=== PATIENT | female | born 1950 | race Caucasian/White ===

== ENCOUNTER 2016-03-19 09:52 | Day surgery (SDC) | payer MEDICARE ==
[~2016-03-19 09:52] MED LIST: LACTATED RINGERS 1,000 ML IV SCH; LIDOCAINE 1% 20 ML VIAL (10MG/ML) FOR IV START INTRADERMA PRN
[2016-03-19 10:05] VITALS: RESP 16
[2016-03-19] MEDS ORDERED: PROPOFOL 10 MG/ML 20 ML VIAL IV ONE (10:20)
[2016-03-19 10:21] VITALS: TEMP 97.8
--- NOTE | 2016-03-19 10:28 | P.GSHP ---
History of Present Illness H&P Date: 03/19/16 Chief Complaint: Screening Patient her today for colonoscopy. Last colonoscopy was 10 years ago. No bowel related complaints. No family history of colon cancer. Past Medical History Past Medical History: Asthma, Hyperlipidemia Additional Past Medical History / Comment(s): Fine Tremors History of Any Multi-Drug Resistant Organisms: None Reported Past Surgical History: Bladder Surgery, Hysterectomy Additional Past Surgical History / Comment(s): bladder susp Past Anesthesia/Blood Transfusion Reactions: No Reported Reaction Past Psychological History: No Psychological Hx Reported Smoking Status: Never smoker Past Alcohol Use History: Occasional Past Drug Use History: None Reported - Past Family History Sister(s) Family Medical History: Cancer Additional Family Medical History / Comment(s): ovarian Mother Additional Family Medical History / Comment(s): healthy at age 89 Father Family Medical History: No Reported History Medications and Allergies Home Medications Medication Instructions Recorded Confirmed Type Albuterol Nebulized [Ventolin 2.5 mg INHALATION TID PRN 12/21/14 03/19/16 History Nebulized] Propranolol HCl 20 mg PO QAM 12/21/14 03/19/16 History Simvastatin [Zocor] 20 mg PO HS 12/21/14 03/19/16 History Calcium Carbonate/Vitamin D3 1 each PO DAILY 03/17/16 03/19/16 History [Calcium 600-Vit D3 200 Tablet] Cetirizine HCl [Zyrtec] 10 mg PO DAILY PRN 03/17/16 03/19/16 History Cholecalciferol [Vitamin D3] 1,000 unit PO DAILY 03/17/16 03/19/16 History Fluticasone/Salmeterol [Advair 1 inhalation PO QAM 03/17/16 03/19/16 History 500-50 Diskus] Multivitamins, Thera [Multivitamin] 1 tab PO DAILY 03/17/16 03/19/16 History Allergies Allergy/AdvReac Type Severity Reaction Status Date / Time shrimp Allergy Anaphylaxis Verified 03/17/16 08:32 Surgical - Exam Vital Signs Temp Pulse Resp BP Pulse Ox 97.4 F L 90 16 126/81 96 03/19/16 10:00 03/19/16 10:00 03/19/16 10:00 03/19/16 10:00 03/19/16 10:00 Physical exam: General: Well-developed, well-nourished HEENT: Normocephalic, sclerae nonicteric Abdomen: Nontender, nondistended Extremities: No edema Neuro: Alert and oriented Assessment and Plan (1) Colon cancer screening Narrative/Plan: Proceed with colonoscopy at this time. Status: Acute
--- NOTE | 2016-03-19 10:42 | P.PCN ---
Date of Procedure: 03/19/16 Procedure(s) Performed: PREOPERATIVE DIAGNOSIS: Screening POSTOPERATIVE DIAGNOSIS: Transverse colon polyp, diverticulosis PROCEDURE: Colonoscopy with snare polypectomy ANESTHESIA: MAC SURGEON: David Gardiner M.D. SPECIMENS: Transverse colon polyp ENDOSCOPIC PROCEDURE: The patient was placed on the endoscopy table in the left decubitus position. The Olympus colonoscope was inserted into the anus and passed under direct visualization to the base of the cecum. The appendiceal orifice was visualized. From that point the scope was slowly withdrawn inspecting all surfaces carefully. There were no neoplastic inflammatory or polypoid lesions throughout the cecum and ascending colon. In the mid transverse colon a small polyp was identified and removed using the snare with cautery technique. The remainder of the transverse descending sigmoid and rectum appeared normal. There was mild left-sided diverticulosis present. Digital rectal examination was normal. The patient was taken to the recovery room in stable condition per anesthesia guidelines. RECOMMENDATIONS: Await biopsy results. Anticipate follow-up colonoscopy 5 years.
[2016-03-19 11:22] VITALS: BP 143/72; PULSE 91
== END 2016-03-19 11:27 | disposition home or self-care (01) ==
LOC: ORWHC2ENDO 09:52
PROVIDERS: ATTEND Surgery
DX: Z12.11 Encounter for screening for malignant neoplasm of colon (principal); D12.3 Benign neoplasm of transverse colon; K57.30 Diverticulosis of large intestine without perforation or abscess without bleeding; J45.909 Unspecified asthma, uncomplicated; E78.5 Hyperlipidemia, unspecified; Z79.84 Long term (current) use of oral hypoglycemic drugs; Z79.51 Long term (current) use of inhaled steroids; Z79.899 Other long term (current) drug therapy; Z91.013 Allergy to seafood
CPT/HCPCS: 88305; 45385; J2704; 99153

== ENCOUNTER → 2016-07-16 | Outpatient (CLI) | payer MEDICARE ==
--- NOTE | 2016-07-16 22:17 | US ---
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 Pt states swelling in neck, no known thyroid problems GLAND SIZE: Right Lobe: 4.1 x 1.1 x 1.3 cm Overall Parenchyma: homogenous Left Lobe: 3.8 x 1.0 x 1.6 cm Overall Parenchyma: homogeneous Isthmus Thickness: 0.2 cm NODULES RIGHT: # of nodules measured on right: 1 Small sub-centimeter cyst at mid level LEFT: # of nodules measured on left: 0 ISTHMUS: # of nodules measured in the isthmus: 0 Bilateral neck scanned, no evidence of lymphadenopathy. Thyroid gland is normal in size and homogeneous In echotexture. No worrisome greater than 1 cm nodules are evident. IMPRESSION: Normal-sized thyroid without suspicious nodules.
== END | disposition home or self-care (01) ==
LOC: RADUSWWP 16:07
PROVIDERS: ATTEND Family Medicine
DX: E04.1 Nontoxic single thyroid nodule (principal)
CPT/HCPCS: 76536

== ENCOUNTER → 2017-02-12 | Outpatient (CLI) | payer MEDICARE ==
--- NOTE | 2017-02-12 16:17 | BD ---
EXAMINATION TYPE: MG DEXA axial skeleton. DATE OF EXAM: 02/12/2017 CLINICAL HISTORY: Height: 63.5 Weight: 180 FRAX RISK QUESTIONS: Alcohol (3 or more units per day): no Family History (Parent hip fracture): no Glucocorticoids (More than 3mos): yes, inhaler, breathing treatments (Ex: prednisone, prednisolone, methylprednisolone, dexamethasone, and hydrocortisone). History of Fracture in Adulthood: wrist/forearm, ribs Secondary Osteoporosis: 1. Type 1 Diabetes: no 2. Hyperthyroidism: no 3. Menopause before 45: no 4. Malnutrition: no 5. Chronic liver disease: no Rheumatoid Arthritis: no Current Tobacco Use: no RISK FACTORS HISTORY OF: History of Wrist Fracture: yes When: about 8 years ago Surgery to Spine/Hip(right/left)/Wrist (right/left): no Family History of Osteoporosis: no Active: yes Diet low in dairy products/other sources of calcium: no Postmenopausal woman: yes Take estrogen and/or progesterone medications: not now How long: started age 53 then took for about 3 years Lost more than 2 inches in height since high school: no Frequent falls: no Poor Health: no Hyperparathyroidism: no Adrenal Insufficiency: no MEDICATIONS: Prednisone or other steroids: yes, for asthma How Long: about 4 years Thyroid Medications: no Osteoporosis Medications: no Additional Medications: cholesterol meds EXAM MEASUREMENTS: Bone mineral densitometry was performed using the [employer] System. Bone mineral density as measured about the Lumbar spine is: ----- L1-L4(G/cm2): 1.310 T Score Values are as follows: ----- L2: 0.7 ----- L3: 1.1 ----- L4: 2.3 ----- L1-L4: 1.1 Bone mineral density has: Decreased -0.5% since study of: 10/12/2014 Bone mineral density about the R hip (g/cm2): 1.033 Bone mineral density about the L hip (g/cm2): 1.069 T Score values are as follows: -----R Neck: 0.0 -----L Neck: 0.2 -----R Total: 1.0 -----L Total: 1.3 Bone mineral density has: Decreased -1.8% since study of: 10/12/2014 IMPRESSION: Normal (Values between +1 and -1 indicate normal bone mass). Consider repeating this study in 5 year s or sooner if there is some new clinical indication. NOTE: T-SCORE=SD OF THE YOUNG ADULT MEAN.
--- NOTE | 2017-02-13 11:19 | MM ---
Reason for exam: screening (asymptomatic). Last mammogram was performed 1 year and 3 months ago. History: Patient is postmenopausal. Taking estrogen for 3 years beginning at age 53. Physical Findings: A clinical breast exam by your physician is recommended on an annual basis and results should be correlated with mammographic findings. MG Screening Mammo w CAD Bilateral CC and MLO view(s) were taken. Prior study comparison: November 14, 2015, bilateral MG screening mammo w CAD. September 14, 2014, bilateral MG screening mammo w CAD. The breast tissue is heterogeneously dense. This may lower the sensitivity of mammography. There is chronic nodularity in the left breast, stable since 2011. No significant changes when compared with prior studies. ASSESSMENT: Benign, BI-RAD 2 RECOMMENDATION: Routine screening mammogram of both breasts in 1 year.
== END | disposition home or self-care (01) ==
LOC: RADBDWWP 12:16
PROVIDERS: ATTEND Family Medicine
DX: Z12.31 Encounter for screening mammogram for malignant neoplasm of breast (principal); Z78.0 Asymptomatic menopausal state
CPT/HCPCS: 77067; 77080

== ENCOUNTER → 2017-06-17 | Outpatient (CLI) | payer MEDICARE ==
[2017-06-17 08:46] LABS: ALT 44 U/L (9-52); AST 32 U/L (14-36); Cholesterol 181 mg/dL (<200); HDL Cholesterol 51 mg/dL (40-60); LDL Cholesterol,Calculated 103 mg/dL (0-99); Triglycerides 137 mg/dL (<150)
== END | disposition home or self-care (01) ==
LOC: LABWHC1 07:51
PROVIDERS: ATTEND Family Medicine
DX: E78.00 Pure hypercholesterolemia, unspecified (principal)
CPT/HCPCS: 36415; 80061; 84450; 84460

== ENCOUNTER → 2018-02-25 | Outpatient (CLI) | payer MEDICARE ==
--- NOTE | 2018-02-27 13:31 | MM ---
Reason for exam: screening (asymptomatic). Last mammogram was performed 1 year ago. History: Patient is postmenopausal. Taking estrogen for 3 years beginning at age 53. MG Screening Mammo w CAD Bilateral CC and MLO view(s) were taken. Prior study comparison: February 12, 2017, bilateral MG screening mammo w CAD. November 14, 2015, bilateral MG screening mammo w CAD. The breast tissue is heterogeneously dense. This may lower the sensitivity of mammography. Chronic nodularity in the right breast. No significant changes when compared with prior studies. ASSESSMENT: Benign, BI-RAD 2 RECOMMENDATION: Routine screening mammogram of both breasts in 1 year.
== END | disposition home or self-care (01) ==
LOC: RADMAMWWP 09:27
PROVIDERS: ATTEND Family Medicine
DX: Z12.31 Encounter for screening mammogram for malignant neoplasm of breast (principal)
CPT/HCPCS: 77067

== ENCOUNTER → 2018-07-09 | Outpatient (CLI) | payer MEDICARE ==
[2018-07-09 11:25] LABS: Anion Gap 4 mmol/L; Blood Urea Nitrogen 20 mg/dL (7-17); Calcium 9.3 mg/dL (8.4-10.2); Carbon Dioxide 32 mmol/L (22-30); Chloride 105 mmol/L (98-107); Glucose 99 mg/dL (74-99); Sodium 141 mmol/L (137-145)
[2018-07-09 11:29] LABS: Potassium 5.5 mmol/L (3.5-5.1)
--- NOTE | 2018-07-09 12:44 | CT ---
EXAMINATION TYPE: CT abdomen pelvis wo/w con DATE OF EXAM: 07/09/2018 COMPARISON: None HISTORY: Pre OP bladder suspension CT DLP: 3165 mGycm Automated exposure control for dose reduction was used. TECHNIQUE: Helical acquisition of images was performed from the lung bases through the pelvis. CONTRAST: Performed without Oral Contrast and without and with IV Contrast, patient injected with 100 mL of Iso yousuf 300. FINDINGS: There is some linear density at the lung bases consistent with subsegmental atelectasis. Heart size i s normal. There is no pericardial effusion. There is no pleural effusion. Liver spleen stomach pancreas gallbladder appear normal. Bile ducts are not dilated. There is no adrenal mass. Kidneys have normal size and contour. There are renal parapelvic cysts. The re is no hydronephrosis. Ureters are not dilated. There is no retroperitoneal adenopathy. Appendix ap pears normal. There is descent of the floor of the urinary bladder consistent with cystocele. There is 6 mm calcifi c density at the floor of the pelvis on the left side that could be a sebaceous cyst or phlebolith. H ysterectomy is noted. There is no inguinal hernia. There is no free fluid in the pelvis. There are mu ltiple diverticula of the sigmoid colon. I see no sign of diverticulitis. There is no evidence of a b owel obstruction. There is no mesenteric edema. There is no free air or ascites. There are spondylotic changes in the lumbar spine with moderate narrowing at L4-5 disc. There is no c ompression fracture. IMPRESSION: MILD SUBSEGMENTAL ATELECTASIS AT THE LUNG BASES. SMALL CYSTOCELE. COLONIC DIVERTICULOSIS WITHOUT DIVERTICULITIS.
== END | disposition home or self-care (01) ==
LOC: RADCTMAIN 10:28
PROVIDERS: ATTEND Urology
DX: K57.30 Diverticulosis of large intestine without perforation or abscess without bleeding (principal); N81.10 Cystocele, unspecified; R31.29 Other microscopic hematuria
CPT/HCPCS: 80048; 74178; 36415; Q9967

== ENCOUNTER → 2018-08-02 | Outpatient (CLI) | payer MEDICARE ==
[2018-08-02 16:51] LABS: LDL Cholesterol,Calculated 79.4 mg/dL (0.0-131.0); VLDL Calculation 22.6 mg/dL (5.00-40.00)
== END | disposition home or self-care (01) ==
LOC: LABWHC1 07:56
PROVIDERS: ATTEND Family Medicine
DX: E78.00 Pure hypercholesterolemia, unspecified (principal)
CPT/HCPCS: 36415; 80061; 84450; 84460

== ENCOUNTER → 2018-11-09 | Outpatient (CLI) | payer MEDICARE ==
[2018-11-09 08:36] LABS: HCT 44.1 % (34.0-46.0); HGB 14.8 gm/dL (11.4-16.0); MCH 29.7 pg (25.0-35.0); MCHC 33.5 g/dL (31.0-37.0); MCV 88.7 fL (80.0-100.0); Mean Platelet Volume 7.4; Platelet Count 197 k/uL (150-450); RBC 4.97 m/uL (3.80-5.40); RDW 12.9 % (11.5-15.5); WBC 5.9 k/uL (3.8-10.6)
[2018-11-09 09:05] LABS: Creatine Kinase MB 1.4 ng/mL (0.0-2.4); Troponin I <0.012 ng/mL (0.000-0.034)
[2018-11-09 18:04] LABS: African American GFR (CKD) 102.5 (60.0-200.0); Anion Gap 10.9 mmol/L (4.00-12.00); BUN/Creat Ratio 25.71 Ratio (12.00-20.00); Calcium 9.1 mg/dL (8.7-10.3); Carbon Dioxide 31.1 mmol/L (21.6-31.8); Potassium 4.2 mmol/L (3.5-5.5)
== END | disposition home or self-care (01) ==
LOC: LABWHC1 07:58
PROVIDERS: ATTEND Urology
DX: N81.11 Cystocele, midline (principal)
CPT/HCPCS: 36415; 80048; 82553; 84484; 85027; 87086

== ENCOUNTER → 2019-12-16 | Outpatient (CLI) | payer MEDICARE | END | disposition home or self-care (01) | LOC: LABWHC1 10:36 | PROVIDERS: ATTEND Family Medicine | DX: R05 Cough (principal) | CPT/HCPCS: U0003; C9803 ==

== ENCOUNTER → 2020-12-13 | Outpatient (CLI) | payer MEDICARE ==
--- NOTE | 2020-12-17 09:49 | MM ---
Reason for exam: screening (asymptomatic). Last mammogram was performed 2 years and 10 months ago. History: Patient is postmenopausal. Took hormonal contraceptives for 4 years. Taking estrogen for 3 years beginning at age 53. Physical Findings: A clinical breast exam by your physician is recommended on an annual basis and results should be correlated with mammographic findings. MG 3D Screening Mammo W/Cad Bilateral CC and MLO view(s) were taken. Prior study comparison: February 25, 2018, bilateral MG screening mammo w CAD. February 12, 2017, bilateral MG screening mammo w CAD. No significant changes when compared with prior studies. ASSESSMENT: Benign, BI-RAD 2 RECOMMENDATION: Routine screening mammogram of both breasts in 1 year.
== END | disposition home or self-care (01) ==
LOC: RADMAMWWP 11:28
PROVIDERS: ATTEND Family Medicine
DX: Z12.31 Encounter for screening mammogram for malignant neoplasm of breast (principal); Z78.0 Asymptomatic menopausal state
CPT/HCPCS: 77063; 77067

== ENCOUNTER → 2021-12-24 | Outpatient (CLI) | payer MEDICARE ==
--- NOTE | 2021-12-24 10:55 | MM ---
Reason for Exam: Screening (asymptomatic). Last screening mammogram was performed 12 month(s) ago. Patient History: Menarche at age 11. First Full-Term at age 24. Right ovary removed at age 47. Hysterectomy at age 47. Postmenopausal. Currently using Estrogen, beginning at age 53 for 3 years. Patient used Hormonal Contraceptives for 4 years. Risk Values: Ratna 5 year model risk: 2.0%. NCI Lifetime model risk: 5.1%. Prior Study Comparison: 07/31/1989 Screening Mammogram, Unknown. 04/15/2012 Bilateral Screening Mammogram, [facility]. 06/10/2013 Bilateral Screening Mammogram, [facility]. 09/14/2014 Bilateral Screening Mammogram, [facility]. 11/14/2015 Bilateral Screening Mammogram, [facility]. 02/12/2017 Bilateral Screening Mammogram, [facility]. 02/25/2018 Bilateral Screening Mammogram, [facility]. 12/13/2020 Bilateral Screening Mammogram, [facility]. Tissue Density: There are scattered fibroglandular densities. Findings: Analyzed By CAD. A few tiny benign-appearing round calcifications bilaterally are redemonstrated. Stable 7 mm oval circumscribed mass in the right breast unchanged from several prior mammograms seen best on CC view. There is no suspicious new group of microcalcifications or new suspicious mass in either breast. Overall Assessment: Benign, BI-RAD 2 Management: Screening Mammogram of both breasts in 1 year. A clinical breast exam by your physician is recommended on an annual basis and results should be correlated with mammographic findings. Electronically signed and approved by: Sung Robbins M.D.
== END | disposition home or self-care (01) ==
LOC: RADMAMWWP 08:14
PROVIDERS: ATTEND Family Medicine
DX: Z12.31 Encounter for screening mammogram for malignant neoplasm of breast (principal); Z78.0 Asymptomatic menopausal state
CPT/HCPCS: 77063; 77067

== ENCOUNTER → 2021-12-24 | Outpatient (CLI) | payer MEDICARE ==
--- NOTE | 2021-12-24 09:43 | US ---
EXAMINATION TYPE: US abdomen complete DATE OF EXAM: 12/24/2021 COMPARISON: CT abdomen pelvis 07/09/2018. CLINICAL HISTORY: R10.84 ABD PAIN. TECHNIQUE: Multiple sonographic images of the abdomen are obtained. FINDINGS: EXAM MEASUREMENTS: Liver Length: 13.4 cm Gallbladder Wall: 0.1 cm CBD: 0.4 cm Spleen: 10.0 cm Right Kidney: 10.1 x 4.2 x 4.1 cm Left Kidney: 11.3 x 4.5 x 4.7 cm SPECIALTY COOK NOTES: Technically difficult study due to overlying bowel gas. Pancreas: wnl as seen partially obscured by overlying bowel gas Liver: limited visualization, situated high in ribs, unable to well evaluate, wnl as seen. No solid o r cystic masses identified. No intrahepatic biliary duct dilatation. Gallbladder: cholelithiasis, possible sludge. No wall thickening or pericholecystic fluid. Evidence for sonographic Thompson's sign: no CBD: wnl Spleen: wnl Right Kidney: parapelvic cysts largest measuring 0.5 x 0.4 x 0.4cm . No hydronephrosis or shadowing calculi. No contour deforming solid mass. Left Kidney: innumerable parapelvic cysts, largest a cystic cluster measuring 1.9 x 1.5 x 1.9cm. No hydronephrosis or shadowing calculi. No contour deforming solid mass. Upper IVC: wnl Abd Aorta: wnl as seen partially obscured by overlying bowel gas IMPRESSION: * No acute process. * Cholelithiasis without evidence for acute cholecystitis. * Bilateral renal sinus cysts.
== END | disposition home or self-care (01) ==
LOC: RADUSWWP 08:11
PROVIDERS: ATTEND Family Medicine
DX: K80.20 Calculus of gallbladder without cholecystitis without obstruction (principal); N28.1 Cyst of kidney, acquired
CPT/HCPCS: 76700

== ENCOUNTER → 2023-01-13 | Outpatient (CLI) | payer MEDICARE ==
--- NOTE | 2023-01-14 16:19 | MM ---
Reason for Exam: Screening (asymptomatic). Last mammogram was performed 1 year(s) and 1 month(s) ago. Patient History: Menarche at age 11. First Full-Term at age 24. Right ovary removed at age 47. Hysterectomy at age 47. Postmenopausal. Currently using Estrogen, beginning at age 53 for 3 years. Patient used Hormonal Contraceptives for 4 years. Risk Values: Ratna 5 year model risk: 2.0%. NCI Lifetime model risk: 4.8%. Prior Study Comparison: 02/25/2018 Bilateral Screening Mammogram, [facility]. 12/13/2020 Bilateral Screening Mammogram, [facility]. 12/24/2021 Bilateral MG 3D screening mammo w/cad, [facility]. Tissue Density: The breast tissue is heterogeneously dense. This may lower the sensitivity of mammography. Findings: Analyzed By CAD. Pattern appears symmetrical and stable No suspicious groups of microcalcifications, spiculated or lobular masses, architectural distortion or other secondary signs of malignancy are mammographically apparent. Overall Assessment: Benign, BI-RAD 2 Management: Screening Mammogram of both breasts in 1 year. A negative mammogram report should not preclude additional follow up of suspicious palpable abnormalities. Patient should continue monthly self breast exam. A clinical breast exam by your physician is recommended on an annual basis and results should be correlated with mammographic findings. Electronically signed and approved by: Miguel A Greco D.O. Radiologis
== END | disposition home or self-care (01) ==
LOC: RADMAMWWP 09:45
PROVIDERS: ATTEND Family Medicine
DX: Z12.31 Encounter for screening mammogram for malignant neoplasm of breast (principal); Z78.0 Asymptomatic menopausal state
CPT/HCPCS: 77063; 77067

== ENCOUNTER → 2023-05-18 | Day surgery (SDC) | payer MEDICARE ==
[2023-05-13 15:50] VITALS: BMI 30.5
[~2023-05-18] MED LIST changes: +ACETAMINOPHEN TAB 325 MG TAB PO SCH; +GLYCOPYRROLATE 0.2 MG/ML 2 ML VIAL ONE; +IBUPROFEN 600 MG TAB PO SCH; -LACTATED RINGERS 1,000 ML IV SCH; -LIDOCAINE 1% 20 ML VIAL (10MG/ML) FOR IV START INTRADERMA PRN; +LIDOCAINE 1% INJ 10MG/ML (20 ML MDV) ONE; +MIDAZOLAM 2 MG/2 ML VIAL IV PRN; +MIDAZOLAM 2 MG/2 ML VIAL ONE; +NEOSTIGMINE 1 MG/ML 10 ML VIAL ONE; +ONDANSETRON 4 MG/2 ML VIAL IVP PRN; +PHENYLEPHRINE 10 MG/ML VIAL ONE; +PROPOFOL 10 MG/ML 20 ML VIAL IV ONE; +ROCURONIUM 10 MG/ML (5 ML VIAL) IV ONE; +SUCCINYLCHOLINE CHLORIDE 200 MG/10 ML VIAL IV ONE; +fentaNYL (PF) 50 MCG/ML 2 ML AMP ONE; +traMADol 50 MG TAB PO PRN
[2023-05-18] MEDS: LACTATED RINGERS 1,000 ML IV SCH (06:44)
[2023-05-18] MEDS: ACETAMINOPHEN TAB 500 MG TAB PO PRN (06:59)
[2023-05-18] MEDS: DEXAMETHASONE SOD PHOSPHATE 4 MG/ML 1 ML VIAL IV ONE (06:59)
[2023-05-18] MEDS: HEPARIN SODIUM,PORCINE 5,000 UNIT/ML 1 ML VIAL SQ PRN (07:00)
[2023-05-18] MEDS: ONDANSETRON 4 MG/2 ML VIAL IVP ONE ×2 (07:00→11:26)
--- NOTE | 2023-05-18 07:10 | P.GSHP ---
History of Present Illness H&P Date: 05/18/23 Chief Complaint: Chronic cholecystitis 72-year-old female seen in the office in February. Patient having complaints of postprandial pain and bloating. History of known gallstones. Symptoms have increased since she was last seen. She contacted our office to schedule surger y. Past Medical History Past Medical History: Asthma, Hyperlipidemia, Hypertension Additional Past Medical History / Comment(s): Fine Tremors, GALLSTONES History of Any Multi-Drug Resistant Organisms: None Reported Past Surgical History: Bladder Surgery, Hysterectomy Additional Past Surgical History / Comment(s): bladder susp. COLONOSCOPY/EGD Past Anesthesia/Blood Transfusion Reactions: No Reported Reaction Smoking Status: Never smoker - Past Family History Sister(s) Family Medical History: Cancer Additional Family Medical History / Comment(s): ovarian Mother Additional Family Medical History / Comment(s): healthy at age 89 Father Family Medical History: No Reported History Medications and Allergies Home Medications Medication Instructions Recorded Confirmed Type Albuterol Nebulized [Ventolin 2.5 mg INHALATION TID PRN 12/21/14 05/18/23 History Nebulized] Simvastatin [Zocor] 20 mg PO DAILY 12/21/14 05/18/23 History Calcium Carbonate/Vitamin D3 1 each PO DAILY 03/17/16 05/18/23 History [Calcium 600-Vit D3 200 Tablet] Cholecalciferol [Vitamin D3] 1,000 unit PO DAILY 03/17/16 05/18/23 History Fluticasone Propion/Salmeterol 2 inhalation PO QAM 03/17/16 05/18/23 History [Advair 500-50 Diskus] Propranolol HCl [Propranolol HCl 160 mg PO DAILY 05/13/23 05/18/23 History ER] Allergies Allergy/AdvReac Type Severity Reaction Status Date / Time shrimp Allergy Anaphylaxis Verified 05/18/23 06:38 Surgical - Exam Vital Signs Temp Pulse Resp BP Pulse Ox 94.4 F L 70 16 164/71 95 05/18/23 06:45 05/18/23 06:45 05/18/23 06:45 05/18/23 06:45 05/18/23 06:45 Physical exam: General: Well-developed, well-nourished HEENT: Normocephalic, sclerae nonicteric Abdomen: Nontender, nondistended Extremities: No edema Neuro: Alert and oriented Assessment and Plan (1) Chronic cholecystitis Narrative/Plan: 72-year-old female with chronic cholecystitis. Will proceed with laparoscopic cholecystectomy, possible open. Risks of bleeding, infection, bile leak, bile duct injury, retained common bile duct stone, trocar injury, conversion to an open procedure, hernia, anesthesia related complications were reviewed. The patient understands and wishes to proceed. Current Visit: Yes Status: Acute Code(s): K81.1 - CHRONIC CHOLECYSTITIS SNOMED Code(s): 32372043
[2023-05-18] MEDS: BUPIVACAINE (PF) 0.25% 30 ML VIAL SQ ONE ×2 (07:27)
--- NOTE | 2023-05-18 08:36 | P.OP ---
Date of Procedure: 05/18/23 Procedure(s) Performed: PREOPERATIVE DIAGNOSIS: Chronic cholecystitis POSTOPERATIVE DIAGNOSIS: Same PROCEDURE: Laparoscopic cholecystectomy SURGEON: Zuleyka EBL: Minimal see anesthesia record ANESTHESIA: Gen. COMPLICATIONS: None OPERATIVE PROCEDURE: The patient was brought and placed on the operating room table in the supine position. The patient was placed under general anesthesia at that time. The abdomen was prepped and draped in the usual sterile fashion. A small vertical infraumbilical incision was made. The fascia was grasped with the Nain forceps. The fascia was retracted anteriorly. The Veress needle was advanced into the peritoneal cavity. The saline drop test was normal. Insufflation took place up to 15 mmHg. A 5 mm optical trocar was advanced and the peritoneal cavity. 2 additional 5 mm trochars were placed in the right upper quadrant under direct visualization. A 12 mm trocar was advanced into the epigastric incision site. There was some adhesions between the omental fat and the gallbladder that were lysed using LigaSure. The gallbladder was retracted superiorly and laterally. The peritoneum overlying the infundibulum was bluntly dissected. The patient's cystic duct was visualized. The junction between the cystic duct common and hepatic duct was identified. The critical view of safety was achieved after blunt dissection. The cystic duct was then divided after placement of 3 12 mm clips on the patient's side and one on the specimen side. The cystic artery was identified and clipped as well. A small vessel was seen along the gallbladder fossa and clipped as well. The gallbladder was then removed from the liver bed using electrocautery. The gallbladder was then removed from the epigastric trocar site with an Endo Catch bag. The gallbladder fossa was irrigated with saline. There was no evidence of any bleeding or biliary drainage seen. The fascia at the 12 millimeter site was closed using a Moy-Pura 0 Vicryl stitch. The trochars were then removed. The skin at all 4 sites was closed using a 4-0 Monocryl stitch. Skin glue was utilized on the incision sites. At the end of this procedure the sponge and needle counts were correct. DISPOSITION: Stable to the recovery room
[2023-05-18 08:44] VITALS: TEMP 97
[2023-05-18] MEDS: HYDROmorphone 0.5 MG/0.5 ML SYRINGE IVP PRN (08:53)
[2023-05-18] MEDS: KETOROLAC 15 MG/ML 1 ML VIAL IVP ONE (09:21)
[2023-05-18 10:54] VITALS: RESP 16
[2023-05-18 11:35] LABS: Glucose,Whole Blood 152 mg/dL (70-110)
[2023-05-18] MEDS: ALBUTEROL NEBULIZED 2.5 MG/3 ML INHALATION ONE (12:05)
[2023-05-18 13:13] LABS: Basophils % (A) 0 %; Eosinophils % (A) 0 %; HCT 42.8 % (34.0-46.0); HGB 13.6 gm/dL (11.4-16.0); Lymphocytes # (A) 0.8 k/uL (1.0-4.8); Lymphocytes % (A) 8 %; MCH 29.5 pg (25.0-35.0); MCHC 31.8 g/dL (31.0-37.0); MCV 92.8 fL (80.0-100.0); Monocytes # (A) 0.1 k/uL (0-1.0); Monocytes % (A) 1 %; Neutrophils % (A) 90 %; Platelet Count 156 k/uL (150-450); RBC 4.62 m/uL (3.80-5.40); RDW 12.6 % (11.5-15.5)
[2023-05-18 14:27] VITALS: BP 124/74; PULSE 88
== END ==
LOC: OR 06:14
PROVIDERS: ATTEND Surgery
DX: K80.10 Calculus of gallbladder with chronic cholecystitis without obstruction (principal); I10 Essential (primary) hypertension; E78.5 Hyperlipidemia, unspecified; J45.909 Unspecified asthma, uncomplicated; Z90.710 Acquired absence of both cervix and uterus; Z98.890 Other specified postprocedural states; Z80.41 Family history of malignant neoplasm of ovary; Z79.51 Long term (current) use of inhaled steroids; Z79.899 Other long term (current) drug therapy
CPT/HCPCS: 85025; 47562; J1644; J1100; J2405; J1885; J1170; J0665; 88304

== ENCOUNTER → 2024-05-18 | Outpatient (CLI) | payer MEDICARE ==
--- NOTE | 2024-05-18 11:11 | BD ---
EXAMINATION TYPE: Axial Bone Density DATE OF EXAM: 05/18/2024 CLINICAL HISTORY: 73 years old Female. ICD-10 CODE: ,Z78.0 , Additional History: Height: 63.2 Weight: 169 FRAX RISK QUESTIONS: Glucocorticoids (More than 3mos): yes, for asthma over 10 yrs now (Ex: prednisone, prednisolone, methylprednisolone, dexamethasone, and hydrocortisone). History of Fracture in Adulthood: yes Secondary Osteoporosis: yes 3. Menopause before 45: yes. under 45 RISK FACTORS HISTORY OF: History of Wrist Fracture: yes, left about 9 yrs ago MEDICATIONS: HRT, bp meds, vit d and calcium EXAM MEASUREMENTS: Bone mineral densitometry was performed using the [employer] System. Bone mineral density as measured about the Lumbar spine is: ----- L1-L4(G/cm2): 1.320 T Score Values are as follows: ----- L1: 0.4 ----- L2: -0.3 ----- L3: 1.4 ----- L4: 2.7 ----- L1-L4: 1.2 Z Score Values are as follows: ----- L1: 1.7 ----- L2: 1.0 ----- L3: 2.7 ----- L4: 4.0 ----- L1-L4: 2.5 Bone mineral density has: Increased 0.8% since study of: 02.12.2017 Bone mineral density about the R hip (g/cm2): 1.117 Bone mineral density about the L hip (g/cm2): 1.180 T Score values are as follows: -----R Neck: -0.4 -----L Neck: 0.0 -----R Total: 0.9 -----L Total: 1.4 Z Score values are as follows: -----R Neck: 1.3 -----L Neck: 1.7 -----R Total: 2.3 -----L Total: 2.8 Bone mineral density has: Decreased -0.4% since study of: 02.12.2017 FRAX%s: The graph provided illustrates a 18.9% chance for a major osteoporotic fx and a 2.1% chance f or the hips probability for fx in 10 years time. IMPRESSION: Normal (Values between +1 and -1 indicate normal bone mass). Consider repeating this study in 5 year s or sooner if there is some new clinical indication. NOTE: T-SCORE=SD OF THE YOUNG ADULT MEAN. [facility], , 05/18/2024 11:09 AM
--- NOTE | 2024-05-18 13:13 | MM ---
Reason for Exam: Screening (asymptomatic). Last mammogram was performed 1 year(s) and 4 month(s) ago. Patient History: Menarche at age 11. First Full-Term at age 24. Right ovary removed at age 47. Hysterectomy at age 47. Postmenopausal. Currently using Estrogen, beginning at age 53 for 3 years. Patient used Hormonal Contraceptives for 4 years. Risk Values: Ratna 5 year model risk: 2.0%. NCI Lifetime model risk: 4.5%. Prior Study Comparison: 12/13/2020 Bilateral Screening Mammogram, [facility]. 12/24/2021 Bilateral MG 3D screening mammo w/cad, [facility]. 01/13/2023 Bilateral MG 3D screening mammo w/cad, [facility]. Tissue Density: There are scattered areas of fibroglandular density. Findings: Analyzed By CAD. Chronic nodularity central posterior right cc view. There is no suspicious group of microcalcifications or new suspicious mass in either breast. Overall Assessment: Benign, BI-RAD 2 Management: Screening Mammogram of both breasts in 1 year. Patient should continue monthly self-breast exams. A clinical breast exam by your physician is recommended on an annual basis. This exam should not preclude additional follow-up of suspicious palpable abnormalities. Note on Ranta scores and lifetime risk: 1. A Ratna score greater than 3% is considered moderate risk. If this is the case, consider specialist referral to assess eligibility for a risk reducing agent. 2. If overall lifetime risk for the development of breast cancer is 20% or higher, the patient may qualify for future screening with alternating mammogram and breast MRI. [facility], , 05/18/2024 1:10 PM. Electronically signed and approved by: Samra Garcia M.D. Radiologist
== END | disposition home or self-care (01) ==
LOC: RADBDWWP 08:31
PROVIDERS: ATTEND Family Medicine
DX: Z12.31 Encounter for screening mammogram for malignant neoplasm of breast (principal); R92.323 Mammographic fibroglandular density, bilateral breasts; M85.851 Other specified disorders of bone density and structure, right thigh; Z78.0 Asymptomatic menopausal state; Z92.0 Personal history of contraception
CPT/HCPCS: 77063; 77067; 77080